=== PATIENT | male | born 1995 | race Caucasian/White ===

== ENCOUNTER 2021-01-23 21:48 | Emergency (ER) | payer OTHER ==
[~2021-01-23] VITALS: Ht 170.2 cm; Wt 79.4 kg
[~2021-01-23 21:48] MED LIST: CETI10 PO; PRED5 PO
[2021-01-24] MEDS ORDERED: Ciprofloxacin2.5 ML LEFTEYE (00:07)
== END 2021-01-24 00:17 | disposition home or self-care (01) ==
LOC: ER 21:48
DX: T15.02XA Foreign body in cornea, left eye, initial encounter (principal); Z88.1 Allergy status to other antibiotic agents; Z88.0 Allergy status to penicillin
CPT/HCPCS: 99282; A9270

== ENCOUNTER → 2021-07-07 | Outpatient (CLI) | payer OTHER ==
[~2021-07-07] MED LIST changes: +Ciprofloxacin2.5 ML LEFTEYE
== END ==
LOC: LAB SHORT 15:09
DX: D48.5 Neoplasm of uncertain behavior of skin (principal)
CPT/HCPCS: 88312

== ENCOUNTER → 2021-07-07 | Outpatient (CLI) | payer OTHER | LOC: LAB SHORT 18:53 → LAB 18:53 | DX: L08.9 Local infection of the skin and subcutaneous tissue, unspecified (principal); D48.5 Neoplasm of uncertain behavior of skin; D22.5 Melanocytic nevi of trunk; D22.71 Melanocytic nevi of right lower limb, including hip; D22.72 Melanocytic nevi of left lower limb, including hip; L40.0 Psoriasis vulgaris | CPT/HCPCS: 87070; 87077; 87147; 87186; 87205 ==

== ENCOUNTER → 2021-10-05 | Outpatient (CLI) | payer OTHER | LOC: LAB SHORT 13:04 | DX: D22.5 Melanocytic nevi of trunk (principal); L40.8 Other psoriasis; L08.9 Local infection of the skin and subcutaneous tissue, unspecified; L40.0 Psoriasis vulgaris; L02.425 Furuncle of right lower limb; L02.426 Furuncle of left lower limb; B95.61 Methicillin susceptible Staphylococcus aureus infection as the cause of diseases classified elsewhere; Z71.89 Other specified counseling | CPT/HCPCS: 87070; 87077; 87147; 87186; 87205 ==

== ENCOUNTER → 2021-10-24 | Outpatient (CLI) | payer OTHER ==
[2021-10-26 12:11] LABS: CORONAVIRUS (COVID19) CSH-NRL Negative (Negative)
== END | disposition home or self-care (01) ==
LOC: LAB 15:59 → LAB SHORT 15:59
PROVIDERS: Physician Assistant Medical
DX: Z20.822 Contact with and (suspected) exposure to COVID-19 (principal)
CPT/HCPCS: U0003

== ENCOUNTER → 2025-04-15 | Outpatient (CLI) | payer OTHER | LOC: LAB SHORT 13:05 → LAB 13:05 | DX: R35.0 Frequency of micturition (principal) | CPT/HCPCS: 87086 ==